=== PATIENT | male | born 1970 | race Caucasian/White ===

== ENCOUNTER 2016-10-20 09:59 | Emergency (ER) | payer MEDICAID, OTHER ==
[~2016-10-20] VITALS: Ht 180.3 cm; Wt 83.9 kg
[~2016-10-20 09:59] MED LIST: PRENATAL PO; THI100 PO
[2016-10-20 10:03] VITALS: PULSE 79; RESP 18; O2SAT 99
--- NOTE | 2016-10-20 10:14 | ED.REPORT ---
HPI-Overdose/Alcohol Toxicity Date of Service Oct 20, 2016 ED Provider: Beto Swartz Pt is an otherwise healthy 46 year old male who presents to the ED for detox today. He c/o shaking and malaise. He denies any other symptoms. The pt reports that he has a bed at [facility], but he was unable to make it at his scheduled time due to missing the bus. The pt contacted [facility] today and states that they still have a bed for him, but they referred him to the ED for detox for 2 days before they accept him. He reports that he was clean for 2 days before using cocaine and consumed alcohol yesterday. The pt states that he is homeless and has been staying in [facility] in a parking garage. Nursing Notes Stated Complaint: DETOX Chief Complaint: Substance Abuse Nursing Notes Reviewed: Yes Allergies: Coded Allergies: acetaminophen (Verified Allergy, VOMITING, 02/10/13) oxycodone HCl (Verified Allergy, VOMITING, 02/10/13) Scheduled Omeprazole (Omeprazole) 40 Mg Capsule.dr 40 MG PO DAILY Scheduled PRN Lorazepam (Lorazepam) 1 Mg Tablet 1 MG PO DIRECTED PRN PRN For Anxiety 2 tabs every 4 hours x 2d., 1 tab every 4 h x 2d., 1 tab every8 h x2d, then stop General Time Seen by Provider: 10:17 Chief Complaint Other (Detox) Hx Obtained From: Patient Arrived By: Walk-in Onset Occurred: Onset unknown Symptom Duration: Since onset Severity: Current: No pain currently Severity: Maximum: No pain Recent Healthcare: No recent doctor visit, No recent hospitalization Similar Sx Previous: Yes Past Medical History Past Medical History Denies Past Surgical History Denies Smoking History Unknown if Ever Smoker Social History Alcohol Use: >5 per day Drug Use: Cocaine, Meth Other Social History: Homeless Ambulatory Status Independent Review of Systems Constitutional: Reports: Malaise, Denies: Fever Respiratory: Denies: Non-productive cough, Shortness of breath Neurologic: Reports: Shaking Complete sys rev & neg: except as marked. Physical Exam Initial Vital Signs Vital Signs (First) Date Time Temp Pulse Resp B/P Pulse Ox O2 Delivery O2 Flow Rate FiO2 10/20/16 10:03 36.7 79 18 99 Room Air 10/20/16 14:35 128/83 Initial VS: Reviewed Head / Eyes: Atraumatic, Normocephalic Neck: Supple, Full range of motion Extremities: Vascular intact, Neuro intact Skin: Warm, Dry, No cyanosis General/Constitutional: Awake, Alert, Cooperative Tremulous and mildly diaphoretic. Respiratory / Chest: Atraumatic, Breath sounds NL, Breath sounds = bilat Cardiovascular: Heart rate NL, Regular rhythm, Heart sounds NL Abdomen: Atraumatic, Soft, Non-tender Neurologic: Oriented X3, Speech NL, No motor deficits, No sensory deficits Psychiatric: Affect NL Interpretation & Diagnostics Lab Results Interpretation Result Diagram: 10/20/16 1046 10/20/16 1046 Test 10/20/16 10:46 10/20/16 11:40 White Blood Count 5.8th/mm3 (3.8-10.1) Red Blood Count 4.89mil/mm3 (4.40-5.80) Hemoglobin 14.9g/dL (13.8-17.2) Hematocrit 43.5% (41.0-50.0) Mean Corpuscular Volume 89.0fL (81-100) Mean Corpuscular Hemoglobin 30.5pg (27.0-35.0) Mean Corpuscular Hemoglobin Concent 34.3% (32.0-37.0) Red Cell Distribution Width 13.3% (12.3-15.4) Platelet Count 287bil/L (150-400) Neutrophils (%) (Auto) 58.6% (40-74) Lymphocytes (%) (Auto) 30.2% (14-46) Monocytes (%) (Auto) 7.6% (4-12) Eosinophils (%) (Auto) 3.1% (0-5) Basophils (%) (Auto) 0.5% (0-3) Sodium Level 145mEq/L (134-144) Potassium Level 4.3mEq/L (3.5-5.2) Chloride Level 107mEq/L (97-108) Carbon Dioxide Level 23mmol/L (18-29) Blood Urea Nitrogen 15mg/dL (6-24) Creatinine 0.78mg/dL (0.76-1.27) Estimat Glomerular Filtration Rate 115mL/min (>59) Glucose Level 107mg/dL (60-99) Calcium Level 8.8mg/dL (8.5-10.1) Total Bilirubin 0.4mg/dL (0.0-1.2) Aspartate Amino Transf (AST/SGOT) 18U/L (0-50) Alanine Aminotransferase (ALT/SGPT) 16U/L (0-44) Alkaline Phosphatase 51U/L (25-150) Total Protein 6.5g/dL (6.4-8.4) Albumin 3.8g/dL (3.4-5.0) Thyroid Stimulating Hormone (TSH) 1.290uIU/mL (0.450-4.500) Hold Welsh Top Tube Received (Received) Hold Urine Received (Received) Re-Eval/Medical Decision Source of Hx: Old records Re-Evaluation/Progress : Time of Eval: 14:18 Re-Evaluation/Progress Note: Pt rechecked. Informed pt of plan for discharge. Pt understands and agrees with plan for discharge. F/U instructions and RTER warnings given. All questions addressed. Consultation : Referral / Consult Name: [facility] Call Returned at: 10:24 Department Secretary: Agrees with plan Note: Consult with PCN. Discussed pt's case. Counseled Regarding: Diagnosis, Lab results, Need for follow-up, When/why to return to ED Discharge & Departure Impression: Primary Impression: Alcohol abuse Additional Impression: Alcohol withdrawal Disposition: Home Discharge Condition All VS Reviewed: Yes Condition: Stable Patient Instructions: Alcohol Withdrawal (ED) Additional Instructions: Go directly to crisis respite. I am optimistic that [facility] will accept you on Saturday. Take lorazepam as directed for alcohol withdrawal. Referrals: [facility] Scribe Attestation Portions of this note were transcribed by Chasidy Trevizo. I, Dr. Swartz personally performed the history, physical exam and medical decision-making; I reviewed and confirmed the accuracy of the information in the transcribed note. Signed by: Germania De La O, 10/20/16 and 11:50. copies to: [facility] Beto Swartz MD Oct 20, 2016 10:14 Chasidy Ramirez Oct 20, 2016 10:24
[2016-10-20] MEDS ORDERED: LORazepam 2 mg Tablet PO ONE ×2 (10:25→14:20)
[2016-10-20] MEDS ORDERED: OMEP40CA36 PO (10:27)
[2016-10-20 11:04] LABS: BASOPHILS % (AUTO) 0.5 % (0-3); EOSINOPHILS % (AUTO) 3.1 % (0-5); MONOCYTES % (AUTO) 7.6 % (4-12); Mean Corpuscular Hemoglobin 30.5 pg (27.0-35.0); NEUTROPHILS % (AUTO) 58.6 % (40-74); Platelet Count 287 bil/L (150-400)
[2016-10-20] MEDS ORDERED: LORA1TAB PO (14:19)
[2016-10-20 14:35] VITALS: BP 128/83; PULSE 90; RESP 16; O2SAT 98
== END 2016-10-20 14:36 | disposition home or self-care (01) ==
LOC: SED 09:59
DX: F10.239 Alcohol dependence with withdrawal, unspecified (principal); Z59.0 Homelessness; Z88.5 Allergy status to narcotic agent; Z88.8 Allergy status to other drugs, medicaments and biological substances